=== PATIENT | male | born 1970 | race Two or more races ===

== ENCOUNTER → 2016-08-20 | Day surgery (SDC) | payer BC ==
[~2016-08-20] MED LIST: CETI10TA22 PO; HYDROmorphone 2 MG/ML VIAL IV PRN; IV RINGERS,LACTATED 1000ML 1,000 ML IV SCH; LIDOCAINE 1% 1 ML SYRINGE. ID PRN; LIDOCAINE 2% PF Vial for OR 5 ML VIAL. ONE; MORPHINE SULFATE 2 MG/ML DISP.SYRIN. IV PRN; ONDANSETRON PF 4 MG/2 ML VIAL. IV PRN; PROCHLORPERAZINE 10 MG/2 ML VIAL. IV PRN; PROPOFOL 20 ML IV ONE; PROPOFOL 40 ML IV ONE; fentaNYL PF VIAL 100 MCG/2 ML VIAL IV PRN
[2016-08-20 10:50] VITALS: BP 143/74
--- NOTE | 2016-08-20 14:50 | PREOP HP ---
DATE OF SERVICE: DATE OF PROCEDURE: 08/20/2016 REQUESTING PHYSICIAN: ____. PRIMARY CARE PHYSICIAN: ____. REASON FOR PROCEDURE: Rectal bleeding and hoarseness. HISTORY OF PRESENT ILLNESS: The patient presents with reflux and rectal bleeding. ALLERGIES: No known drug allergies. PAST MEDICAL HISTORY: Significant for hypertension. FAMILY MEDICAL HISTORY: Denies colorectal cancer. SOCIAL HISTORY: He is a former smoker and drinks less than 7 alcoholic beverages a week. MEDICATIONS: 1. Citalopram. 2. Xanax. 3. Oxycodone. 4. Naprosyn. 5. Vitamin D. 6. ____. 7. Omeprazole. REVIEW OF SYSTEMS: A 13-point review of systems was done. It is positive as per HPI and otherwise negative. PHYSICAL EXAMINATION: GENERAL: He is a well-developed, well-nourished male in no apparent distress. HEENT: Oropharynx is clear. CARDIOVASCULAR: S1, S2. LUNGS: Clear. ABDOMEN: Normoactive bowel sounds, soft, nontender, nondistended. EXTREMITIES: No edema. NEUROLOGIC: Awake, alert and oriented x 3. ASSESSMENT AND PLAN: 1. Hoarseness. The risks and benefits of the upper endoscopy have been explained and he has agreed to proceed. 2. Rectal bleeding. The risks and benefits of colonoscopy have been explained, he has agreed to proceed. Thank you for allowing me to participate in the care of this patient. TROY MENDIOLA MD DR: OTTO/nts JOB#: [id number] / [id number]
--- NOTE | 2016-08-24 15:12 | PATHOLOGY ---
PATHOLOGY REPORT * * * * * * * * FINAL DIAGNOSIS: A. Small bowel, biopsy: - Small bowel mucosa with no pathologic diagnosis. - Normal villous architecture. B. Stomach, antrum, biopsy: - Chronic superficial gastritis, mild. - No evidence of Helicobacter pylori on immunoperoxidase stain. C. Esophagus, distal, biopsy: - Squamocolumnar epithelium with mild to moderate chronic inflammation. - No evidence of intestinal metaplasia. (SKM:dominic; d/t: 08/24/2016) REPORT ELECTRONICALLY SIGNED BY: Breezy Cottrell M.D. DATE/TIME: 08/24/2016 15:11 * * * * * * * * GROSS PATHOLOGY: A. Received in formalin labeled "James Miguel ., small bowel biopsy," are two segments of huff soft tissue measuring 0.5 x 0.4 x 0.1 cm in aggregate dimensions and ranging from 0.4 to 0.5 cm in maximum dimension. The specimen is submitted entirely in cassette A1. B. Received in formalin labeled "James Miguel Jr., antrum biopsy," are two segments of huff soft tissue measuring 0.6 x 0.4 x 0.1 cm in aggregate dimensions and ranging from 0.3 to 0.6 cm in maximum dimension. The specimen is submitted entirely in cassette B1. C. Received in formalin labeled "James Miguel Jr., distal esophagus biopsy," are two segments of huff soft tissue measuring 0.6 x 0.5 x 0.1 cm in aggregate dimensions and ranging from 0.4 to 0.5 cm in maximum dimension. The specimen is submitted entirely in cassette C1. (CAA; 08/21/2016) INITIAL CPT CODE(S): A; 43873 B; 40147, 14314 C; 46751 Professional services performed by [facility] at [facility] [address] [place] [address] Technical services performed by [facility] at [address] [place] [address], [address], [place] [address]. SPECIMEN(S) RECEIVED: A.Small bowel biopsy B.Antrum biopsy C.Distal esophagus CLINICAL HISTORY: Hoarseness, rectal bleed PATIENT: JAMES MIGUEL JR /AGE: 812/02/1970 (Age: 45) PATIENT #: [id number] ALT CASE #: SPECIMEN COLLECTION DATE: 08/20/2016 SPECIMEN RECEIVED DATE: 08/20/2016 [facility] - [address] [place] [address] - PHONE: [phone] * * * END OF REPORT * * *
== END | disposition home or self-care (01) ==
LOC: ENDOS 08:36
PROVIDERS: ATTEND Internal Medicine Gastroenterology
DX: K64.0 First degree hemorrhoids (principal); K31.9 Disease of stomach and duodenum, unspecified; K21.0 Gastro-esophageal reflux disease with esophagitis; F32.9 Major depressive disorder, single episode, unspecified; I10 Essential (primary) hypertension; Z85.3 Personal history of malignant neoplasm of breast; Z83.3 Family history of diabetes mellitus; Z80.41 Family history of malignant neoplasm of ovary; Z72.89 Other problems related to lifestyle
CPT/HCPCS: 43239; 45378; 88305; 88342; J2704